=== PATIENT | female | born 2000 | race Caucasian/White ===

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

== ENCOUNTER 2021-07-24 11:41 | Emergency (ER) | payer BC ==
[2021-07-24 12:20] VITALS: BP 110/64; PULSE 98
[2021-07-24] MEDS ORDERED: Sodium Chloride 0.9% 10 ML Syringe FLUSH PRN (12:50)
[2021-07-24] MEDS ORDERED: Sodium Chloride 0.9% 1,000 ML IV ONE (12:50)
== END 2021-07-24 14:40 | disposition home or self-care (01) ==
LOC: JD.ED 11:41
DX: H60.12 Cellulitis of left external ear (principal); Z88.1 Allergy status to other antibiotic agents; Z88.0 Allergy status to penicillin
CPT/HCPCS: 36415; 80053; 83735; 85025; 86140; 87070; 87205; 96360; 99284; J3490; J7030; 87075

== ENCOUNTER 2023-03-22 08:32 | Emergency (ER) | payer BC ==
[2023-03-22] MEDS ORDERED: Sodium Chloride 0.9% 10 ML Syringe FLUSH PRN ×2 (09:18→09:23)
[2023-03-22] MEDS ORDERED: Iopamidol 612 MG/ML 100 ML Bottle IVPUSH ONE (09:23)
[2023-03-22 09:49] LABS: BASOPHILS PERCENT AUTO 0.2 % (0.0-1.0); EOSINOPHILS ABSOLUTE AUTO 0.1 K/mm3 (0.0-0.4); EOSINOPHILS PERCENT AUTO 1.3 % (0.0-6.0); HEMATOCRIT 39.7 % (37.0-47.0); HEMOGLOBIN 13.7 gm/dl (12.0-16.0); IMMATURE GRAN ABSOLUTE AUTO 0.02 K/mm3 (0.00-0.05); IMMATURE GRAN PERCENT AUTO 0.2 % (0.0-0.4); LYMPHOCYTES ABSOLUTE AUTO 1.1 K/mm3 (1.0-4.8); LYMPHOCYTES PERCENT AUTO 12.3 % (24.0-44.0); MEAN CORPUSCULAR HEMOGLOBIN 31.9 pg (28.0-32.0); MEAN CORPUSCULAR HGB CONC 34.5 g/dl (32.0-36.0); MEAN CORPUSCULAR VOLUME 92.3 fl (83.0-99.0); MEAN PLATELET VOLUME 9.8 fl (9.4-12.3); MONOCYTES ABSOLUTE AUTO 0.6 K/mm3 (0.0-0.8); MONOCYTES PERCENT AUTO 6.9 % (0.0-8.0); NEUTROPHILS ABSOLUTE AUTO 7.3 K/mm3 (1.8-7.7); NEUTROPHILS PERCENT AUTO 79.1 % (41.0-71.0); PLATELET COUNT,PLT 223 K/mm3 (150-400); WHITE BLOOD CELL COUNT,WBC 9.28 K/mm3 (3.9-11.3)
[2023-03-22 09:50] LABS: APPEARANCE,URINE CLEAR (Clear); BILIRUBIN,URINE NEGATIVE (Negative); COLOR,URINE YELLOW (Yellow); GLUCOSE,URINE NEGATIVE (Negative); KETONES,URINE NEGATIVE (Negative); LEUKOCYTE ESTERASE,URINE TRACE (Negative); NITRITE,URINE NEGATIVE (Negative); OCCULT BLOOD,URINE NEGATIVE (Negative); PROTEIN,URINE NEGATIVE (Negative); UROBILINOGEN,URINE 0.2 (0.2-1.0)
[2023-03-22 10:06] LABS: BACTERIA,URINE FEW /hpf (FEW); MUCUS,URINE RARE /hpf (FEW); RBC,URINE 0-5 /hpf (0-5); WBC,URINE 0-5 /hpf (0-5)
[2023-03-22 10:13] LABS: A/G RATIO 0.8 (1-2); ALBUMIN 3.5 g/dl (3.4-5.0); ANION GAP 11.6 (5-15); BILIRUBIN TOTAL 0.6 mg/dL (0.2-1.0); BUN/CREATININE RATIO 8.3 (14-18); CREATININE 0.6 mg/dL (0.55-1.02); EST CRCL DRUG DOSING (CG) 160.39 mL/min; POTASSIUM,K 3.6 mEq/L (3.5-5.1); PROTEIN TOTAL,TP 7.8 g/dl (6.4-8.2)
[2023-03-22 11:34] VITALS: BP 121/73; PULSE 85
== END 2023-03-22 11:33 | disposition home or self-care (01) ==
LOC: JD.ED 08:32
DX: K62.5 Hemorrhage of anus and rectum (principal); K59.09 Other constipation; J18.9 Pneumonia, unspecified organism; Z88.0 Allergy status to penicillin
CPT/HCPCS: 36415; 74177; 80053; 81001; 83690; 84703; 85025; J3490; Q9967; 99284